=== PATIENT | male | born 1960 | race Hispanic/Latino ===

== ENCOUNTER 2017-01-29 17:56 | Inpatient (IN) | payer MEDICARE ==
[~2017-01-29] VITALS: Ht 167.6 cm; Wt 114.0 kg
[2017-01-29 19:21] LABS: HEMATOCRIT 41.3 % (39.0-50.0); HEMOGLOBIN 13.4 g/dl (14.0-18.0); IMMATURE GRANULOCYTES 0.3 % (0.0-1.0); MEAN CORPUSCULAR HGB 27.6 pG CALC (26.0-32.0); MEAN CORPUSCULAR HGB CONC 32.4 g/L CALC (32.0-36.0); NEUT# 6.72 thou/uL (1.82-7.42); RED BLOOD COUNT 4.86 mill/uL (4.70-6.10); RED CELL DISTRI WIDTH 15.9 % (11.5-15.5); URINE BILIRUBIN - DIPSTICK NEGATIVE (NEGATIVE); URINE BLOOD DIPSTICK NEGATIVE (NEGATIVE); URINE CLARITY CLEAR; URINE COLOR YELLOW; URINE GLUCOSE - DIPSTICK >=1000 mg/dL (NEGATIVE); URINE KETONE NEGATIVE (NEGATIVE); URINE LEUK ESTERASE NEGATIVE (NEGATIVE); URINE NITRITE - DIPSTICK NEGATIVE (Negative); URINE PROTEIN - DIPSTICK NEGATIVE (NEG-TRACE); URINE SPECIFIC GRAVITY 1.015; URINE UROBILINOGEN - DIPSTICK 0.2 E.U./dL (0.2)
[2017-01-29 19:36] LABS: INTERNATIONAL NORMALIZED RATIO 2.5 RATIO (0.7-1.3); PROTHROMBIN TIME 29.6 SECONDS (9.0-12.5)
[2017-01-29 19:39] LABS: ALBUMIN 3.9 g/dL (3.2-5.0); CREATININE 1.6 mg/dL (0.7-1.3); POTASSIUM 4.9 mmol/l (3.5-5.1)
[2017-01-29 21:43] VITALS: BP 116/81
[2017-01-30 04:00] VITALS: BP 99/78
[2017-01-30 05:38] LABS: HEMATOCRIT 37.9 % (39.0-50.0); HEMOGLOBIN 12.2 g/dl (14.0-18.0); IMMATURE GRANULOCYTES 0.4 % (0.0-1.0); MEAN CELL VOLUME 85.2 fL CALC (80.0-100.0); MEAN CORPUSCULAR HGB 27.4 pG CALC (26.0-32.0); MEAN CORPUSCULAR HGB CONC 32.2 g/L CALC (32.0-36.0); NEUT# 5.74 thou/uL (1.82-7.42); RED BLOOD COUNT 4.45 mill/uL (4.70-6.10); RED CELL DISTRI WIDTH 15.9 % (11.5-15.5)
[2017-01-30 05:50] LABS: CALCIUM 8.6 mg/dL (8.4-10.2); CREATININE 1.5 mg/dL (0.7-1.3); POTASSIUM 4.2 mmol/l (3.5-5.1)
[2017-01-30 05:51] LABS: INTERNATIONAL NORMALIZED RATIO 2.3 RATIO (0.7-1.3); PROTHROMBIN TIME 27.2 SECONDS (9.0-12.5)
[2017-01-30 09:00] VITALS: BP 91/64
[2017-01-30 09:48] VITALS: BP 99/73
[2017-01-30 11:18] VITALS: BP 108/74
[2017-01-30 15:56] VITALS: BP 96/73
[2017-01-30 20:00] VITALS: BP 95/68
[2017-01-31] VITALS: BP 95/63
[2017-01-31 04:18] VITALS: BP 107/73
[2017-01-31 06:08] LABS: HEMATOCRIT 38.6 % (39.0-50.0); HEMOGLOBIN 12.2 g/dl (14.0-18.0); IMMATURE GRANULOCYTES 0.4 % (0.0-1.0); MEAN CORPUSCULAR HGB 27.2 pG CALC (26.0-32.0); MEAN CORPUSCULAR HGB CONC 31.6 g/L CALC (32.0-36.0); NEUT# 5.06 thou/uL (1.82-7.42); RED BLOOD COUNT 4.49 mill/uL (4.70-6.10); RED CELL DISTRI WIDTH 15.9 % (11.5-15.5)
[2017-01-31 06:23] LABS: INTERNATIONAL NORMALIZED RATIO 1.7 RATIO (0.7-1.3); PROTHROMBIN TIME 19.8 SECONDS (9.0-12.5)
[2017-01-31 06:26] LABS: ANION GAP 14 (6-22 (CALC)); BUN 39 mg/dL (9-20); BUN/CREATININE RATIO 28 (12-20 (CALC)); CALCIUM 8.7 mg/dL (8.4-10.2); CARBON DIOXIDE 28 mmol/l (22-30); CHLORIDE 98 mmol/l (95-108); CREATININE 1.4 mg/dL (0.7-1.3); GFR 52 ML/MIN (>=60 (CALC)); GFR FOR AFR.AMER. > 60 ML/MIN (>=60 (CALC)); GLUCOSE 299 mg/dL (75-110); MAGNESIUM 1.6 mg/dL (1.6-2.3); SODIUM 136 mmol/l (137-146)
[2017-01-31 06:33] LABS: CHOLESTEROL HDL RATIO 4.7 (<4.4 (CALC))
[2017-01-31 07:34] VITALS: BP 102/69
[2017-01-31 11:48] VITALS: BP 96/71
[2017-01-31] MEDS ORDERED: ALLOPURINOL100 MG PO (12:21)
[2017-01-31] MEDS ORDERED: ASPIRIN 8181 MG PO (12:22)
[2017-01-31] MEDS ORDERED: ATORVASTATIN CA40 MG PO (12:22)
[2017-01-31] MEDS ORDERED: BENADRYL 25MG C25 MG PO (12:23)
[2017-01-31] MEDS ORDERED: BUMETANIDE1 MG PO (12:25)
[2017-01-31] MEDS ORDERED: BISACODYL10 M1 RE (12:25)
[2017-01-31] MEDS ORDERED: CARVEDILOL6.25 MG PO (12:27)
[2017-01-31] MEDS ORDERED: COUMADIN5 MG PO (12:28)
[2017-01-31] MEDS ORDERED: WARFARIN1 MG PO (12:28)
[2017-01-31] MEDS ORDERED: HUMALOG100 UNIT/M SC (12:31)
[2017-01-31] MEDS ORDERED: HUMULIN N100 UNIT/M SC (12:32)
[2017-01-31] MEDS ORDERED: DUONEB IN (12:36)
[2017-01-31] MEDS ORDERED: NOVOLIN R100 UNIT/M SC (12:36)
[2017-01-31] MEDS ORDERED: LANTUS100 UNIT/M SC (12:37)
[2017-01-31] MEDS ORDERED: METOPROL TAR25 MG PO (12:37)
[2017-01-31] MEDS ORDERED: LISINOPRIL2.5 MG PO (12:37)
[2017-01-31] MEDS ORDERED: MILK OF MAG30 ML/UDC PO (12:38)
[2017-01-31] MEDS ORDERED: OMEPRAZOLE20 MG PO (12:39)
[2017-01-31] MEDS ORDERED: SPIRONOLACTONE25 MG PO (12:40)
[2017-01-31] MEDS ORDERED: BUDESONID2 IN (12:40)
[2017-01-31] MEDS ORDERED: TRAZODONE50 MG PO (12:41)
[2017-01-31 15:35] VITALS: BP 97/69
[2017-01-31 20:00] VITALS: BP 101/64
[2017-02-01 04:00] VITALS: BP 92/65
[2017-02-01 06:13] LABS: HEMATOCRIT 41.2 % (39.0-50.0); HEMOGLOBIN 12.8 g/dl (14.0-18.0); IMMATURE GRANULOCYTES 0.3 % (0.0-1.0); MEAN CELL VOLUME 86.4 fL CALC (80.0-100.0); MEAN CORPUSCULAR HGB 26.8 pG CALC (26.0-32.0); MEAN CORPUSCULAR HGB CONC 31.1 g/L CALC (32.0-36.0); NEUT# 5.46 thou/uL (1.82-7.42); RED BLOOD COUNT 4.77 mill/uL (4.70-6.10); RED CELL DISTRI WIDTH 16.5 % (11.5-15.5)
[2017-02-01 06:32] LABS: INTERNATIONAL NORMALIZED RATIO 1.9 RATIO (0.7-1.3); PROTHROMBIN TIME 21.2 SECONDS (9.0-12.5)
[2017-02-01 06:40] LABS: ANION GAP 15 (6-22 (CALC)); BUN 38 mg/dL (9-20); BUN/CREATININE RATIO 28 (12-20 (CALC)); CALCIUM 9.2 mg/dL (8.4-10.2); CARBON DIOXIDE 30 mmol/l (22-30); CHLORIDE 100 mmol/l (95-108); CREATININE 1.4 mg/dL (0.7-1.3); GFR 52 ML/MIN (>=60 (CALC)); GFR FOR AFR.AMER. > 60 ML/MIN (>=60 (CALC)); GLUCOSE 94 mg/dL (75-110); MAGNESIUM 1.8 mg/dL (1.6-2.3); POTASSIUM 4.1 mmol/l (3.5-5.1); SODIUM 140 mmol/l (137-146)
[2017-02-01 11:00] VITALS: BP 95/64
[2017-02-01 15:00] VITALS: BP 112/79
[2017-02-01 20:27] VITALS: BP 99/75
[2017-02-02] VITALS (7 sets, daily range): BP systolic 94–126; BP diastolic 53–90
[2017-02-02 06:06] LABS: HEMATOCRIT 39.2 % (39.0-50.0); HEMOGLOBIN 12.4 g/dl (14.0-18.0); IMMATURE GRANULOCYTES 0.3 % (0.0-1.0); MEAN CELL VOLUME 87.1 fL CALC (80.0-100.0); MEAN CORPUSCULAR HGB 27.6 pG CALC (26.0-32.0); MEAN CORPUSCULAR HGB CONC 31.6 g/L CALC (32.0-36.0); NEUT# 5.39 thou/uL (1.82-7.42); RED BLOOD COUNT 4.5 mill/uL (4.70-6.10); RED CELL DISTRI WIDTH 16.5 % (11.5-15.5)
[2017-02-02 06:21] LABS: ANION GAP 16 (6-22 (CALC)); BUN 38 mg/dL (9-20); BUN/CREATININE RATIO 27 (12-20 (CALC)); CARBON DIOXIDE 29 mmol/l (22-30); CHLORIDE 98 mmol/l (95-108); CREATININE 1.4 mg/dL (0.7-1.3); GFR 52 ML/MIN (>=60 (CALC)); GFR FOR AFR.AMER. > 60 ML/MIN (>=60 (CALC)); GLUCOSE 147 mg/dL (75-110); MAGNESIUM 1.7 mg/dL (1.6-2.3); POTASSIUM 4.1 mmol/l (3.5-5.1); SODIUM 138 mmol/l (137-146)
[2017-02-02 06:48] LABS: INTERNATIONAL NORMALIZED RATIO 2.1 RATIO (0.7-1.3); PROTHROMBIN TIME 24.7 SECONDS (9.0-12.5)
[2017-02-03 04:17] VITALS: BP 94/67
[2017-02-03 06:50] LABS: HEMATOCRIT 36.9 % (39.0-50.0); HEMOGLOBIN 11.7 g/dl (14.0-18.0); IMMATURE GRANULOCYTES 0.1 % (0.0-1.0); MEAN CELL VOLUME 86.6 fL CALC (80.0-100.0); MEAN CORPUSCULAR HGB 27.5 pG CALC (26.0-32.0); MEAN CORPUSCULAR HGB CONC 31.7 g/L CALC (32.0-36.0); NEUT# 4.91 thou/uL (1.82-7.42); RED BLOOD COUNT 4.26 mill/uL (4.70-6.10); RED CELL DISTRI WIDTH 16.6 % (11.5-15.5)
[2017-02-03 07:01] LABS: INTERNATIONAL NORMALIZED RATIO 2.5 RATIO (0.7-1.3); PROTHROMBIN TIME 29.3 SECONDS (9.0-12.5)
[2017-02-03 07:09] LABS: CALCIUM 8.7 mg/dL (8.4-10.2); CREATININE 1.9 mg/dL (0.7-1.3); MAGNESIUM 1.9 mg/dL (1.6-2.3)
[2017-02-03 08:45] VITALS: BP 90/62
[2017-02-03 11:33] VITALS: BP 102/66
[2017-02-03 15:46] VITALS: BP 95/67
[2017-02-03 19:20] VITALS: BP 109/67
[2017-02-04] VITALS (7 sets, daily range): BP systolic 92–112; BP diastolic 53–87
[2017-02-04 04:43] LABS: CALCIUM 9.3 mg/dL (8.4-10.2); INTERNATIONAL NORMALIZED RATIO 2.9 RATIO (0.7-1.3); POTASSIUM 3.9 mmol/l (3.5-5.1); PROTHROMBIN TIME 34.8 SECONDS (9.0-12.5)
[2017-02-04 05:57] LABS: HEMATOCRIT 40.9 % (39.0-50.0); IMMATURE GRANULOCYTES 0.3 % (0.0-1.0); MEAN CELL VOLUME 86.5 fL CALC (80.0-100.0); MEAN CORPUSCULAR HGB 27.5 pG CALC (26.0-32.0); MEAN CORPUSCULAR HGB CONC 31.8 g/L CALC (32.0-36.0); NEUT# 7.51 thou/uL (1.82-7.42); RED BLOOD COUNT 4.73 mill/uL (4.70-6.10); RED CELL DISTRI WIDTH 16.5 % (11.5-15.5)
[2017-02-04 21:17] LABS: HEMATOCRIT 40.8 % (39.0-50.0); HEMOGLOBIN 12.8 g/dl (14.0-18.0); MEAN CELL VOLUME 86.6 fL CALC (80.0-100.0); MEAN CORPUSCULAR HGB 27.2 pG CALC (26.0-32.0); MEAN CORPUSCULAR HGB CONC 31.4 g/L CALC (32.0-36.0); RED BLOOD COUNT 4.71 mill/uL (4.70-6.10); RED CELL DISTRI WIDTH 16.7 % (11.5-15.5)
[2017-02-05 04:48] VITALS: BP 114/85
[2017-02-05 06:22] LABS: CALCIUM 9.2 mg/dL (8.4-10.2); CREATININE 1.8 mg/dL (0.7-1.3); MAGNESIUM 1.9 mg/dL (1.6-2.3); POTASSIUM 4.5 mmol/l (3.5-5.1)
[2017-02-05 08:21] VITALS: BP 129/94
[2017-02-05 08:52] LABS: INTERNATIONAL NORMALIZED RATIO 4.7 RATIO (0.7-1.3); PROTHROMBIN TIME 57.6 SECONDS (9.0-12.5)
[2017-02-05 11:17] VITALS: BP 114/74
[2017-02-05] MEDS ORDERED: COUMADIN2.5 MG PO (13:22)
[2017-02-05] MEDS ORDERED: OMEPRAZOLE20 MG PO (13:22)
[2017-02-05] MEDS ORDERED: COREG12.5 MG PO (13:22)
[2017-02-05] MEDS ORDERED: BUMETANIDE1 MG PO (13:22)
[2017-02-05] MEDS ORDERED: GUAIFENESI100 MG/51 PO (13:22)
[2017-02-05] MEDS ORDERED: DUONEB IN (13:22)
[2017-02-05] MEDS ORDERED: BUDESONID2 IN (13:22)
[2017-02-05] MEDS ORDERED: PREDNISONE10 MG PO (13:22)
[2017-02-05] MEDS ORDERED: LISINOPRIL2.5 MG PO (13:22)
[2017-02-05] MEDS ORDERED: ATORVASTATIN CA40 MG PO (13:22)
[2017-02-05] MEDS ORDERED: LEVEMIR100 UNIT/M SC (13:22)
[2017-02-05] MEDS ORDERED: BISACODYL10 M1 RE (13:22)
[2017-02-05] MEDS ORDERED: ALLOPURINOL100 MG PO (13:22)
[2017-02-05] MEDS ORDERED: DOXYCYCL HYC100 MG PO (13:22)
[2017-02-05] MEDS ORDERED: ASPIRIN 8181 MG PO (13:22)
[2017-02-05] MEDS ORDERED: BENADRYL 25MG C25 MG PO (13:22)
[2017-02-05] MEDS ORDERED: CORDARONE/200 MG/TAB PO (13:22)
== END 2017-02-05 13:50 | disposition left against medical advice (07) | DRG 291 ==
LOC: ED 17:56 → ED-I 20:20 → ED 21:03 → MS2 21:04 → ICU 21:04 → ED 21:05 → ED-I 21:05 → MS2 01-30 09:35
PROVIDERS: Emergency Medicine; Internal Medicine; Nurse Practitioner Family; ADMIT Internal Medicine; ATTEND Internal Medicine
DX: I13.0 Hypertensive heart and chronic kidney disease with heart failure and stage 1 through stage 4 chronic kidney disease, or unspecified chronic kidney disease (principal); I50.43 Acute on chronic combined systolic (congestive) and diastolic (congestive) heart failure; I47.2 Ventricular tachycardia; J18.9 Pneumonia, unspecified organism; N17.9 Acute kidney failure, unspecified; E11.22 Type 2 diabetes mellitus with diabetic chronic kidney disease; N18.3 Chronic kidney disease, stage 3 (moderate); I42.8 Other cardiomyopathies; J44.0 Chronic obstructive pulmonary disease with (acute) lower respiratory infection; J44.1 Chronic obstructive pulmonary disease with (acute) exacerbation; I48.91 Unspecified atrial fibrillation; I25.10 Atherosclerotic heart disease of native coronary artery without angina pectoris; K80.20 Calculus of gallbladder without cholecystitis without obstruction; E11.65 Type 2 diabetes mellitus with hyperglycemia; F79 Unspecified intellectual disabilities; K21.9 Gastro-esophageal reflux disease without esophagitis; M10.9 Gout, unspecified; E78.5 Hyperlipidemia, unspecified; E66.9 Obesity, unspecified; G47.30 Sleep apnea, unspecified; Z68.39 Body mass index [BMI] 39.0-39.9, adult; Z79.84 Long term (current) use of oral hypoglycemic drugs; Z91.14 Patient's other noncompliance with medication regimen; Z79.01 Long term (current) use of anticoagulants; Z79.4 Long term (current) use of insulin; Z95.810 Presence of automatic (implantable) cardiac defibrillator
CPT/HCPCS: S0164